=== PATIENT | female | born 1950 | race Caucasian/White ===

== ENCOUNTER 2020-03-01 13:33 | Emergency (ER) | payer MEDICARE, MEDICAID ==
[2020-03-01] MEDS: cefTRIAXone 1 GM Vial IVPUSH ONE (14:06)
[2020-03-01] MEDS: Lactated Ringers 1,000 ML IV SCH (14:07)
[2020-03-01] MEDS ORDERED: Sodium Chloride 0.9% 10 ML Syringe FLUSH PRN (14:25)
--- NOTE | 2020-03-01 14:28 | EDM.PDOC ---
ED HPI GENERAL MEDICAL PROBLEM - General Chief Complaint: General Stated Complaint: UTI, unresponsive Time Seen by Provider: 03/01/20 13:33 Source of Information: Reports: EMS, EMS Notes Reviewed, Jail Records History Limitations: Reports: Altered Mental Status - History of Present Illness INITIAL COMMENTS - FREE TEXT/NARRATIVE: Arrives via [facility]. I had received report with Elin from the [address] [place] [address] facility stating Pat had become obtunded and more unresponsive since yesterday. Urinalysis was obtained and resulted showing a UTI. Secondary of her unresponsiveness and decline family members were contacted regarding changing her DNR status to hospice. The decision was still being clarified at the time today when she became responsive only to painful stimuli. She had fever and was becoming tachycardic at which time ambulance was summoned. She has been sequestered at [address] [place] [address] with no overt risk of pandemic CoVid 19. She was hypotensive and tachycardic upon her arrival with near normotensive readings initially obtained by ambulance at the beginning of the transport. Review of systems is fully unobtainable other than what was given in the history of present illness and review of laboratory analysis. Onset: Gradual Duration: Hour(s): - Related Data Allergies Allergy/AdvReac Type Severity Reaction Status Date / Time chicken derived Allergy Cannot Verified 03/01/20 14:47 Remember Fish Containing Products Allergy Cannot Verified 03/01/20 14:47 Remember Penicillins Allergy Cannot Verified 03/21/19 09:48 Remember perfume Allergy Wheezing Verified 03/01/20 14:47 Pork/Porcine Containing Allergy Cannot Verified 03/01/20 14:47 Products Remember tomato Allergy Other Verified 03/01/20 14:47 Home Meds: Home Meds Aspirin [Halfprin] 81 mg PO DAILY 09/03/15 [History] Donepezil HCl [Aricept] 10 mg PO BID 09/03/15 [History] Metoprolol Succinate [Toprol XL] 0.5 tab PO DAILY 09/03/15 [History] traMADol HCl [Ultram] 50 mg PO BEDTIME 09/03/15 [History] Magnesium Hydroxide [Milk of Magnesia] 30 ml PO DAILY PRN 06/08/18 [History] Nystatin 1 each TOP BID PRN 06/08/18 [History] allopurinoL [Zyloprim] 150 mg PO DAILY 06/08/18 [History] Levothyroxine 150 mcg PO ACBREAKFAST 01/12/19 [History] Acetaminophen [Non-Aspirin] 650 mg PO Q4HR PRN 03/21/19 [History] Potassium Chloride 40 meq PO DAILY 03/21/19 [History] ARIPiprazole [Abilify] 5 mg PO DAILY 03/01/20 [History] Bisacodyl [Gentle Laxative] 10 mg RC DAILY PRN 03/01/20 [History] Divalproex Sodium [Depakote Sprinkle] 625 mg PO BID 03/01/20 [History] Furosemide [Lasix] 20 mg PO DAILY 03/01/20 [History] Glycopyrrolate 1 mg PO BID 03/01/20 [History] Sennosides/Docusate Sodium [Senna Plus 8.6-50 mg Tablet] 1 tab PO DAILY [History] Past Medical History HEENT History: Reports: Other (See Below) Cardiovascular History: Reports: Arrhythmia, CAD, Cardiomyopathy, Heart Failure , High Cholesterol, Hypertension, PVD, Other (See Below) Other Cardiovascular History: Chronic dependent edema and recurrent CHF with moderate cardiomegaly, left atrial enlargement, left ventricular hypertrophy and grade 1 diastolic dysfunction by echocardiogram as below. D-dimer elevation chronic with negative workup. PVCs diagnosed on 01/12/19. Questionable right proximal internal artery stenosis versus artifact by MRA on 01/12/19. Respiratory History: Reports: Bronchitis, Recurrent, COPD, Intubation, Previous , Pneumonia, Recurrent, Pulmonary Fibrosis, Other (See Below) Other Respiratory History: Bilateral pulmonary nodules by CT scans as below. Gastrointestinal History: Reports: Cholelithiasis, Diverticulosis, Fecal Incontinence, GERD, Other (See Below) Other Gastrointestinal History: Gallbladder sludge. Dysphagia. Genitourinary History: Reports: Acute Renal Failure, Chronic Renal Insuffiency, Dialysis, Diabetic Nephropathy, Renal Disease, Urinary Incontinence, UTI, Recurrent, Other (See Below) Other Genitourinary History: Grade 4 renal insufficiency INVENTORY TAKER History: Reports: Musculoskeletal History: Reports: Arthritis, Back Pain, Chronic, Fracture, Gout , Neck Pain, Chronic, Osteoarthritis, Osteoporosis, Other (See Below) Other Musculoskeletal History: Hyperuricemia. Old right fourth rib fracture by chest x-ray on 01/12/19. Neurological History: Reports: Alzheimers Disease, CVA, Neuropathy, Diabetic, Neuropathy, Peripheral, Other (See Below) Other Neuro History: Acute encephalopathy secondary to renal disease on 01/12/19 with negative workup for acute CVA at that time despite mild right-sided weakness. Cerebral atrophy and cerebovascular disease by CT scan. Chronic AMS. Suspected CVA with left-sided hemiparesis on 09/21/18 with negative workup as below. Psychiatric History: Reports: Alzheimers Disease, Anxiety, Bipolar, Dementia, Schizophrenia, Other (See Below) Other Psychiatric History: History of lithium toxicity. Endocrine/Metabolic History: Reports: Diabetes, Type II, Hyperparathyroidism, Hypothyroidism, IDDM, Multinodular Thyroid, Obesity/BMI 30+, Osteopenia, Osteoporosis, Other (See Below) Other Endocrine/Metabolic History: Large thyroid gland by ultrasound and CT scans with multiple nodules noted. Postoperative hypothyroidism. Secondary hyperparathyroidism. Hypoalbuminemia. Hypercalcemia/hypocalcemia,hypokalemia, hypernatremia. Hematologic History: Reports: Anemia, Iron Deficiency, Other (See Below) Other Hematologic History: Additional chronic anemia secondary to renal disease. Dermatologic History: Reports: Venous Stasis Dermatitis, Other (See Below) Other Dermatologic History: Recurrent tinea - Infectious Disease History Infectious Disease History: Reports: Chicken Pox, MRSA - Past Surgical History HEENT Surgical History: Reports: Oral Surgery, Other (See Below) Other HEENT Surgeries/Procedures: Complete teeth extraction Cardiovascular Surgical History: Reports: Vascular Surgery, Other (See Below) Other Cardiovascular Surgeries/Procedures: Left arm AV shunt fistula placement on 11/29/17 and 07/14/18. Female Surgical History: Reports: Hysterectomy, Tubal Ligation Endocrine Surgical History: Reports: Thyroidectomy, Other (See Below) Other Endocrine Surgeries/Procedures: Thyroidectomy secondary to goiter as above on 10/24/14. - Past Imaging History Past Imaging History: Reports: Cardiac Echo (Echocardiogram on 05/03/17 with ejection fraction of 70%. Previous evaluation on 02/24/16 with ejection fraction of 5055 percent with findings as above.), CAT Scan (CT of the head on 01/12/19, 09/21/18 and 05/02/18. CT of the CT of the right tibial fibular area on 07/15/17. CT of the chest on 01/31/15 and 08/02/14. CT of the soft tissue of the neck on . CT of the abdomen and pelvis on 01/06/17.), DEXA Scan (06/02/15), Mammogram (Last on 08/02/14), MRA (MRA of the brain and neck on 01/12/19.), MRI ( MRI of the brain on 01/12/19 and 09/21/18.), Swallow Study (Negative on 09/22/18.) , Ultrasound (Bilateral renal ultrasound on 01/05/17 and 09/05/15 Thyroid ultrasound on 07/24/14), Venous Doppler (Bilateral lower extremities on 09/22/15, , and 07/14/14. Left leg on 05/19/15. Right leg on 07/16/14) Social & Family History - Family History Family Medical History: Noncontributory - Living Situation & Occupation Living situation: Reports: Extended Care Facility ([facility] in [facility]) ED ROS GENERAL - Review of Systems Review Of Systems: Comprehensive ROS is negative, except as noted in HPI. Constitutional: Reports: Fever, Malaise ED EXAM, GENERAL - Physical Exam Exam: See Below Free Text/Narrative:: Responsive only to sternal rub and or painful stimulation. HEENT is negative to discharge or deformity with sonorous respirations clearing with positioning. PERRLA no icterus no injection. Tacky dry oral mucous membranes secondary of mouth breathing. Neck is soft and supple with no lymphadenopathy there is no JVD. Thorax is extremely harsh raspiness on exhalation Auscultates with diminished breath sounds right lower half. Cardiac is very distant, tachycardic. Abdomen is soft rotund with bowel sounds present no tenderness elicited. Upper left extremity has a fistula placed in the forearm which does not demonstrate a patency thrill. Lower extremities are free of any significant edema with faint distal pulses, skin is warm and dry. observed with no abnormalities during August catheter placement. Rectal deferred EKG INTERPRETATION EKG Date: 03/01/20 Time: 13:52 Rhythm: NSR Rate (Beats/Min): 131 P-Wave: Present QRS: Normal ST-T: Normal QT: Normal Course - Vital Signs Text/Narrative:: After 1 L lactated Ringer's was infused, blood pressures were still hypotensive , second liter fluid ordered normal saline at 999, although trivial amount of potassium in lactate. No further interference with IV meds that may be given. Last Recorded V/S: Last Vital Signs Temp 36.0 C L 03/01/20 15:15 Pulse 106 H 03/01/20 15:15 Resp 25 H 03/01/20 15:15 BP 76/41 L 03/01/20 15:15 Pulse Ox 91 L 03/01/20 15:15 - Orders/Labs/Meds Orders: Active Orders 24 hr Category Date Time Status Blood Glucose Check, Bedside [RC] ONETIME Care 03/01/20 16:13 Active EKG Documentation Completion [RC] ASDIRECTED Care 03/01/20 13:40 Active Peripheral IV Care [RC] . DIRECTED Care 03/01/20 14:25 Active Urinary Catheter Assessment [RC] ASDIRECTED Care 03/01/20 13:41 Active Urinary Catheter Insertion [Insert Urinary Catheter] [ Care 03/01/20 13:45 Ordered OM.PC] Q24H CULTURE BLOOD [BC] Stat Lab 03/01/20 14:00 Received CULTURE URINE [RM] Stat Lab 03/01/20 14:32 Received Lactated Ringers [Ringers, Lactated] 1,000 ml Med 03/01/20 13:45 Active IV ASDIRECTED Sodium Chloride 0.9% [Normal Saline] 1,000 ml Med 03/01/20 16:30 Active IV ASDIRECTED Sodium Chloride 0.9% [Saline Flush] Med 03/01/20 14:25 Active 10 ml FLUSH Q8HR PRN Blood Culture x2 Reflex Set [OM.PC] Stat Oth 03/01/20 13:38 Ordered Peripheral IV Insertion Adult [OM.PC] Routine Oth 03/01/20 14:25 Ordered EKG 12 Lead [EK] Stat Ther 03/01/20 13:39 Ordered Medication Orders Lactated Ringer's (Ringers, Lactated) 1,000 mls @ 999 mls/hr IV ASDIRECTED [place]KE Last Admin: 03/01/20 14:07 Dose: 999 mls/hr Sodium Chloride (Normal Saline) 1,000 mls @ 999 mls/hr IV ASDIRECTED [place] Last Admin: 03/01/20 16:40 Dose: 999 mls/hr Sodium Chloride (Saline Flush) 10 ml FLUSH Q8HR PRN PRN Reason: keep vein open Labs: Laboratory Tests 03/01/20 03/01/2020 Range/Units 14:00 14:00 14:12 WBC 15.26 H (5.00-10.00) 10^3/uL RBC 4.64 (3.80-5.50) 10^6/uL Hgb 15.3 (12.0-16.0) g/dL Hct 50.4 H (37.0-47.0) % MCV 108.6 H (82.0-92.0) fL MCH 33.0 H (27.0-31.0) pg MCHC 30.4 L (32.0-36.0) g/dL RDW 15.9 H (11.5-14.5) % Plt Count 105 L (150-400) 10^3/uL MPV 11.3 H (7.4-10.4) fL Immature Gran % (Auto) 0.8 (0.0-5.0) % Neut % (Auto) 76.6 H (50.0-70.0) % Lymph % (Auto) 16.3 L (20.0-40.0) % [place] % (Auto) 6.2 (2.0-8.0) % Eos % (Auto) 0.0 L (1.0-3.0) % Baso % (Auto) 0.1 (0.0-1.0) % Neut # (Auto) 11.70 H (2.50-7.00) 10^3/uL Lymph # (Auto) 2.48 (1.00-4.00) 10^3/uL [place] # (Auto) 0.95 H (0.10-0.80) 10^3/uL Eos # (Auto) 0.00 L (0.10-0.30) 10^3/uL Baso # (Auto) 0.01 (0.00-0.10) 10^3/uL Immature Gran # (Auto) 0.12 (0.00-0.50) 10^3/uL Sodium 157 H (136-145) mmol/L Potassium 7.2 H* (3.3-5.3) mmol/L Chloride 121 H (98-115) mmol/L Carbon Dioxide 15.1 L (21.0-32.0) mmol/L Anion Gap 28.1 H (5-15) mmol/L BUN 117 H* (6-25) mg/dL Creatinine 5.71 H (0.51-1.17) mg/dL Est Cr Clr Drug Dosing TNP Estimated GFR (MDRD) 7 mL/min Glucose 194 H (75 - 99) mg/dL Lactic Acid 3.8 H (0.4-2.0) mmol/L Calcium 9.5 (8.7-10.3) mg/dL Total Bilirubin 0.9 (0.2-1.0) mg/dL AST 37 (15-37) U/L ALT 22 (12-78) U/L Alkaline Phosphatase 64 (46-116) IU/L Troponin I 0.23 H* (0.00-0.070) ng/mL Total Protein 7.7 (6.4-8.2) g/dL Albumin 2.68 L (3.00-4.80) g/dL Specimen Type Urine Color (YELLOW) Urine Appearance (CLEAR) Urine pH (5.0-9.0) Ur Specific [place] (1.005-1.030) Urine Protein (NEGATIVE) mg/dL Urine Glucose (UA) (NEGATIVE) mg/dL Urine Ketones (NEGATIVE) mg/dL Urine Occult Blood (NEGATIVE) Urine Nitrite (NEGATIVE) Urine Bilirubin (NEGATIVE) Urine Urobilinogen (0.2-1.0) E.U./dL Ur Leukocyte Esterase (NEGATIVE) Urine RBC (0-5) /HPF Urine WBC (0-5) /HPF Ur Epithelial Cells /LPF Urine Bacteria (NONE TO FEW) /HPF 03/01/20 Range/Units 14:32 WBC (5.00-10.00) 10^3/uL RBC (3.80-5.50) 10^6/uL Hgb (12.0-16.0) g/dL Hct (37.0-47.0) % MCV (82.0-92.0) fL MCH (27.0-31.0) pg MCHC (32.0-36.0) g/dL RDW (11.5-14.5) % Plt Count (150-400) 10^3/uL MPV (7.4-10.4) fL Immature Gran % (Auto) (0.0-5.0) % Neut % (Auto) (50.0-70.0) % Lymph % (Auto) (20.0-40.0) % [place] % (Auto) (2.0-8.0) % Eos % (Auto) (1.0-3.0) % Baso % (Auto) (0.0-1.0) % Neut # (Auto) (2.50-7.00) 10^3/uL Lymph # (Auto) (1.00-4.00) 10^3/uL [place] # (Auto) (0.10-0.80) 10^3/uL Eos # (Auto) (0.10-0.30) 10^3/uL Baso # (Auto) (0.00-0.10) 10^3/uL Immature Gran # (Auto) (0.00-0.50) 10^3/uL Sodium (136-145) mmol/L Potassium (3.3-5.3) mmol/L Chloride (98-115) mmol/L Carbon Dioxide (21.0-32.0) mmol/L Anion Gap (5-15) mmol/L BUN (6-25) mg/dL Creatinine (0.51-1.17) mg/dL Est Cr Clr Drug Dosing Estimated GFR (MDRD) mL/min Glucose (75 - 99) mg/dL Lactic Acid (0.4-2.0) mmol/L Calcium (8.7-10.3) mg/dL Total Bilirubin (0.2-1.0) mg/dL AST (15-37) U/L ALT (12-78) U/L Alkaline Phosphatase (46-116) IU/L Troponin I (0.00-0.070) ng/mL Total Protein (6.4-8.2) g/dL Albumin (3.00-4.80) g/dL Specimen Type . Urine Color Yellow (YELLOW) Urine Appearance Cloudy H (CLEAR) Urine pH 7.5 (5.0-9.0) Ur Specific [place] 1.020 (1.005-1.030) Urine Protein 100 H (NEGATIVE) mg/dL Urine Glucose (UA) Negative (NEGATIVE) mg/dL Urine Ketones Trace H (NEGATIVE) mg/dL Urine Occult Blood Trace-intact H (NEGATIVE) Urine Nitrite Negative (NEGATIVE) Urine Bilirubin Small H (NEGATIVE) Urine Urobilinogen 1.0 (0.2-1.0) E.U./dL Ur Leukocyte Esterase Large H (NEGATIVE) Urine RBC 5-10 H (0-5) /HPF Urine WBC 30-40 H (0-5) /HPF Ur Epithelial Cells Few /LPF Urine Bacteria Many H (NONE TO FEW) /HPF Meds: Medications Generic Name Dose Route Start Last Admin Trade Name Baylee PRN Reason Stop Dose Admin Lactated Ringer's 1,000 mls @ 999 mls/hr 03/01/20 13:45 03/01/20 14:07 Ringers, Lactated IV 999 mls/hr ASDIRECTED [place] Administration Sodium Chloride 1,000 mls @ 999 mls/hr 03/01/20 16:30 03/01/20 16:40 Normal Saline IV 999 mls/hr ASDIRECTED [place] Administration Sodium Chloride 10 ml 03/01/20 14:25 Saline Flush FLUSH Q8HR PRN keep vein open Discontinued Medications Generic Name Dose Route Start Last Admin Trade Name Baylee PRN Reason Stop Dose Admin Ceftriaxone Sodium 1 gm 03/01/20 13:45 03/01/20 14:06 Rocephin IVPUSH 03/01/20 13:46 1 gm ONETIME ONE Administration Ceftriaxone Sodium Confirm 03/01/20 13:49 03/01/20 14:37 Rocephin Administered 03/01/20 13:50 Not Given Dose 1 gm .ROUTE .STK-MED ONE Dextrose/Water 50 ml 03/01/20 16:08 03/01/20 16:43 Dextrose 50% In Water IVPUSH 03/01/20 16:09 50 ml ONETIME ONE Administration Sodium Chloride 1,000 mls @ 999 mls/hr 03/01/20 15:15 03/01/20 15:20 Normal Saline IV 03/01/20 16:15 999 mls/hr .BOLUS ONE Administration Calcium Gluconate 1 gm/ Sodium 110 mls @ 10 mls/min 03/01/20 16:07 03/01/20 16:18 Chloride IV 03/01/20 16:17 10 mls/min ONETIME ONE Administration Insulin Human Regular 15 unit 03/01/20 16:08 03/01/20 16:41 Humulin R IV 03/01/20 16:09 15 unit ONETIME ONE Administration - Re-Assessments/Exams Free Text/Narrative Re-Assessment/Exam: 03/01/20 16:12Dr Jayce Lobo agrees to admission. 03/01/20 17:34 Recommends treatment of hyperkalemia since we are transferring for definitive care. Gram of calcium gluconate given IV, 25 g of D50, and 15 units of regular insulin IV. Ambulance was here for transport so laboratory analysis was not reassessed. Blood sugar will be checked in route and treated appropriately. Departure - Departure Time of Disposition: 16:42 Disposition: DC/Tfer to [facility] 02 Condition: Serious Clinical Impression: Acute on chronic renal failure, Elevated troponin I level, Elevated lactic acid level, Chronic renal failure, stage 4 (severe), Acute hyperkalemia, Pleural effusion Sepsis Qualifiers: Sepsis type: sepsis due to unspecified organism Sepsis acute organ dysfunction status: with acute organ dysfunction Severe sepsis shock status: with septic shock - Discharge Information *PRESCRIPTION DRUG MONITORING PROGRAM REVIEWED*: Not Applicable *COPY OF PRESCRIPTION DRUG MONITORING REPORT IN PATIENT ELISABET: Not Applicable Forms: ED Department Discharge Sepsis Event Note (ED) - Focused Exam Vital Signs: Vital Signs Temp Pulse Resp BP BP Pulse Ox 03/01/20 15:15 36.0 C L 106 H 25 H 76/41 L 91 L 03/01/20 15:00 107 H 24 H 93/45 L 03/01/20 14:30 119 H 84/45 L 03/01/20 14:25 111 H 32 H 73/13 L 92 L 03/01/20 14:19 116 H 31 H 70/42 L 03/01/20 13:45 131 H 110/72 03/01/20 13:40 128 H 73/50 L 03/01/20 13:33 38.0 C 131 H 30 H 55/27 L 92 L ED Communication - ED Communication Date/Time Date: 03/01/20 - Discussed Case With (1) Discussed Case With (1): Other Provider Time Called: 15:30 - Conversation Summary Admitting Provider Agreed to Patient's Admission: Yes Patient's POA/Guardian Aware of Amendments to Care Plan: Yes - Problem List & Annotations (1) Pneumonia SNOMED Code(s): 530703362 Code(s): J18.9 - PNEUMONIA, UNSPECIFIED ORGANISM Status: Acute Priority: High (2) Pleural effusion SNOMED Code(s): 23100682 Code(s): J90 - PLEURAL EFFUSION, NOT ELSEWHERE CLASSIFIED Status: Acute Priority: Medium (3) Atelectasis SNOMED Code(s): 16660291 Code(s): J98.11 - ATELECTASIS Status: Acute Priority: Medium (4) UTI (urinary tract infection) SNOMED Code(s): 44523420 Code(s): N39.0 - URINARY TRACT INFECTION, SITE NOT SPECIFIED Status: Acute Priority: High Onset Date: 03/21/19 Qualifiers: Urinary tract infection type: acute cystitis Hematuria presence: without hematuria Qualified Code(s): N30.00 - Acute cystitis without hematuria (5) Fistula, arteriovenous, acquired SNOMED Code(s): 00230089150131553, 152827381, 63542265569632857 Code(s): I77.0 - ARTERIOVENOUS FISTULA, ACQUIRED Status: Acute Priority: Low Annotation/Comment:: No assessable thrill left forearm (6) Acute hyperkalemia SNOMED Code(s): 0311636 Code(s): E87.5 - HYPERKALEMIA Status: Acute Priority: High (7) Chronic renal failure, stage 4 (severe) SNOMED Code(s): 25139006, 841223154 Code(s): N18.4 - CHRONIC KIDNEY DISEASE, STAGE 4 (SEVERE) Status: Chronic Priority: High (8) Sepsis SNOMED Code(s): 28728876 Code(s): A41.9 - SEPSIS, UNSPECIFIED ORGANISM Status: Acute Priority: High Qualifiers: Sepsis type: sepsis due to unspecified organism Sepsis acute organ dysfunction status: with acute organ dysfunction Severe sepsis shock status: with septic shock (9) Elevated troponin I level SNOMED Code(s): 486543143 Code(s): R79.89 - OTHER SPECIFIED ABNORMAL FINDINGS OF BLOOD CHEMISTRY Status: Acute Priority: High (10) Elevated lactic acid level SNOMED Code(s): 3919691 Code(s): R79.89 - OTHER SPECIFIED ABNORMAL FINDINGS OF BLOOD CHEMISTRY Status: Acute - Problem List Review Problem List Initiated/Reviewed/Updated: Yes - My Orders Last 24 Hours: My Active Orders 03/01/20 13:38 Blood Culture x2 Reflex Set [OM.PC] Stat 03/01/20 13:39 EKG 12 Lead [EK] Stat 03/01/20 13:40 EKG Documentation Completion [RC] ASDIRECTED 03/01/20 13:41 Urinary Catheter Assessment [RC] ASDIRECTED 03/01/20 13:45 Urinary Catheter Insertion [Insert Urinary Catheter] [OM.PC] Q24H Lactated Ringers [Ringers, Lactated] 1,000 ml IV ASDIRECTED 03/01/20 14:00 CULTURE BLOOD [BC] Stat 03/01/20 14:25 Peripheral IV Care [RC] . DIRECTED Sodium Chloride 0.9% [Saline Flush] 10 ml FLUSH Q8HR PRN Peripheral IV Insertion Adult [OM.PC] Routine 03/01/20 14:32 CULTURE URINE [RM] Stat 03/01/20 16:13 Blood Glucose Check, Bedside [RC] ONETIME 03/01/20 16:30 Sodium Chloride 0.9% [Normal Saline] 1,000 ml IV ASDIRECTED - Assessment/Plan Last 24 Hours: My Active Orders 03/01/20 13:38 Blood Culture x2 Reflex Set [OM.PC] Stat 03/01/20 13:39 EKG 12 Lead [EK] Stat 03/01/20 13:40 EKG Documentation Completion [RC] ASDIRECTED 03/01/20 13:41 Urinary Catheter Assessment [RC] ASDIRECTED 03/01/20 13:45 Urinary Catheter Insertion [Insert Urinary Catheter] [OM.PC] Q24H Lactated Ringers [Ringers, Lactated] 1,000 ml IV ASDIRECTED 03/01/20 14:00 CULTURE BLOOD [BC] Stat 03/01/20 14:25 Peripheral IV Care [RC] . DIRECTED Sodium Chloride 0.9% [Saline Flush] 10 ml FLUSH Q8HR PRN Peripheral IV Insertion Adult [OM.PC] Routine 03/01/20 14:32 CULTURE URINE [RM] Stat 03/01/20 16:13 Blood Glucose Check, Bedside [RC] ONETIME 03/01/20 16:30 Sodium Chloride 0.9% [Normal Saline] 1,000 ml IV ASDIRECTED
--- NOTE | 2020-03-01 14:30 | CR ---
[id number] RAD/RAD Chest PA or AP 1V EXAM: FRONTAL CHEST INDICATION: UNRESPONSIVE. COMPARISON: None. DISCUSSION: Small to moderate right pleural effusion. Right base atelectasis and probable infiltrates in the right mid and lower lung. Mild scarring or atelectasis in the left lung base. Normal heart size. IMPRESSION: 1. Small to moderate right pleural effusion. 2. Right mid and lower lung atelectasis and infiltrates. Onofre Rothman MD 03/01/20 2429 Thank you for allowing us to participate in the care of your patient.
[2020-03-01] MEDS: cefTRIAXone 1 GM Vial ONE (14:37)
[2020-03-01 14:42] LABS: ANION GAP 28.1 mmol/L (5-15); CHLORIDE,CL 121 mmol/L (98-115); SODIUM,NA 157 mmol/L (136-145)
[2020-03-01] MEDS: Sodium Chloride 0.9% 1,000 ML IV ONE (15:20)
[2020-03-01] MEDS: Calcium Gluconate 1 GM in Sodium Chloride 0.9% 100 ML IV ONE (16:18)
[2020-03-01] MEDS: Sodium Chloride 0.9% 1,000 ML IV SCH (16:40)
[2020-03-01] MEDS: Insulin Regular, Human 100 Units/ML 10 ML Vial IV ONE (16:41)
[2020-03-01] MEDS: 50% Dextrose in Water 50 ML Syringe IVPUSH ONE (16:43)
[2020-03-01 18:16] VITALS: BP 86/36; PULSE 103
== END 2020-03-01 16:44 ==
LOC: KA.ED 13:33
DX: A41.9 Sepsis, unspecified organism (principal); R65.21 Severe sepsis with septic shock; N17.9 Acute kidney failure, unspecified; I13.0 Hypertensive heart and chronic kidney disease with heart failure and stage 1 through stage 4 chronic kidney disease, or unspecified chronic kidney disease; E11.22 Type 2 diabetes mellitus with diabetic chronic kidney disease; I50.9 Heart failure, unspecified; N18.4 Chronic kidney disease, stage 4 (severe); R79.89 Other specified abnormal findings of blood chemistry; R74.0 Nonspecific elevation of levels of transaminase and lactic acid dehydrogenase [LDH]; E87.5 Hyperkalemia; J90 Pleural effusion, not elsewhere classified; I25.10 Atherosclerotic heart disease of native coronary artery without angina pectoris; E11.51 Type 2 diabetes mellitus with diabetic peripheral angiopathy without gangrene; J44.9 Chronic obstructive pulmonary disease, unspecified; E11.40 Type 2 diabetes mellitus with diabetic neuropathy, unspecified; E21.3 Hyperparathyroidism, unspecified; F41.9 Anxiety disorder, unspecified; F31.9 Bipolar disorder, unspecified; F20.9 Schizophrenia, unspecified; G30.9 Alzheimer's disease, unspecified; F02.80 Dementia in other diseases classified elsewhere, unspecified severity, without behavioral disturbance, psychotic disturbance, mood disturbance, and anxiety; E66.9 Obesity, unspecified; Z88.0 Allergy status to penicillin; Z91.013 Allergy to seafood; Z91.018 Allergy to other foods; Z79.82 Long term (current) use of aspirin; Z79.899 Other long term (current) drug therapy; Z68.27 Body mass index [BMI] 27.0-27.9, adult
CPT/HCPCS: 36415; 51702; 71045; 80053; 81001; 82962; 83605; 84484; 85025; 87040; 87086; 87088; 93005; 96361; 96365; 96375; 99284; 99285; J0610; J0696; J7030; J7050; J7120; 87186